=== PATIENT | male | born 1940 | race Two or more races ===

== ENCOUNTER 2017-09-15 16:04 | Outpatient (CLI) | payer OTHER | END 2017-09-15 16:05 | disposition home or self-care (01) | LOC: LAB 16:04 | DX: R97.20 Elevated prostate specific antigen [PSA] (principal) ==

== ENCOUNTER 2017-10-10 07:12 | Outpatient (CLI) | payer OTHER | END 2017-10-10 07:15 | disposition home or self-care, planned readmission (81) | LOC: SONOGRAMA 07:12 | DX: R97.20 Elevated prostate specific antigen [PSA] (principal) ==

== ENCOUNTER 2023-01-31 22:44 | Emergency (ER) | payer OTHER ==
[~2023-01-31] VITALS: Ht 172.7 cm; Wt 59.0 kg
[2023-01-31] MEDS ORDERED: DEPAKOTE ER250 MG (22:54)
[2023-01-31] MEDS ORDERED: NAMENDA10 MG (22:54)
== END 2023-02-01 04:31 | disposition home or self-care (01) ==
LOC: ER 22:44
DX: S00.03XA Contusion of scalp, initial encounter (principal); W19.XXXA Unspecified fall, initial encounter; Y93.89 Activity, other specified; Y92.89 Other specified places as the place of occurrence of the external cause; Y99.8 Other external cause status; Z88.6 Allergy status to analgesic agent